=== PATIENT | female | born 1975 | race Caucasian/White ===

== ENCOUNTER → 2017-09-01 | Outpatient (CLI) | payer BC ==
--- NOTE | 2017-09-02 07:59 | MG ---
HISTORY: SCREENING Comparison: 06/17/2012 FINDINGS: Bilateral CC and MLO projections of the right and left breast were obtained. Scattered fibroglandula r tissue is seen to be present. There is an area of breast asymmetry involving the upper-outer quadr ant of the right breast posteriorly. The asymmetry displays convex margins on the CC view. On the MLO view, the finding is less certain. Patient should return for follow-up coned spot compression mammog sohan of the right breast. If the area in question persists, targeted ultrasound will be needed. No s kin thickening or nipple retraction is appreciated. No pathological lymphadenopathy can be identifi ed. IMPRESSION: Incomplete evaluation of the right breast as described above. ACR CATEGORY 0 - assessment incomplete; additional imaging is needed. Patient should return for coned spot compression mammograms of the right breast and possibly right br east targeted ultrasound. Diagnostic CAD was utilized and reviewed. * 0 (ZERO) - ASSESSMENT INCOMPLETE; ADDITIONAL IMAGING IS NEEDED. * 1/1 (ONE) - NEGATIVE. * 2/II (TWO) - BENIGN FINDINGS. * 3/III (THREE) - PROBABLY BENIGN FINDING; SHORT INTERVAL FOLLOW-UP SUGGESTED. * 4/IV (FOUR) - SUSPICIOUS ABNORMALITY; BIOPSY SHOULD BE CONSIDERED. * 5/V - HIGHLY SUSPICIOUS OF MALIGNANCY; BIOPSY SHOULD BE PERFORMED. A NEGATIVE X-RAY REPORT SHOULD NOT DELAY BIOPSY IF A DOMINANT OR CLINICALLY SUSPICIOUS MASS IS PRESENT; 4 TO 8 PERCENT OF CANCERS ARE NOT IDENTIFIED BY X-RAY. A NEGA TIVE REPORT MAY REINFORCE THE CLINICAL IMPRESSION. ADENOSIS AND DENSE BREASTS MAY OBSCURE AN UNDERLY ING NEOPLASM. Reported By:
== END ==
LOC: RAD 14:50
PROVIDERS: ATTEND Specialist
DX: Z12.31 Encounter for screening mammogram for malignant neoplasm of breast (principal)
CPT/HCPCS: 77067

== ENCOUNTER → 2017-09-16 | Outpatient (CLI) | payer BC ==
--- NOTE | 2017-09-16 14:51 | US ---
HISTORY: Abnormal screening mammography with right breast focal asymmetry Right breast digital diagnostic mammography with CAD and right breast ultrasound. Comparison: June 17, 2012 and September 01, 2017 FINDINGS: Mammogram: ML and spot compression CC and MLO projections of the right breast were obtained. Scatter ed fibroglandular tissue is seen to be present with the previously described focal asymmetry becoming less prominent with intervening foci of lucency and assuming a similar appearance as compared to the more remote prior but not entirely resolving and which will be correlated with ultrasound. There is no corresponding abnormality on the mL projection. No suspicious architectural distortion, mass or c lustered microcalcifications can be observed to suggest malignancy. No skin thickening or nipple ret raction is appreciated. No pathological lymphadenopathy can be identified. Ultrasound: Multiple grayscale and color Doppler images of the upper outer quadrant right breast were obtained. At 10 o'clock approximately 5 cm from the nipple, there are dense fibrocystic changes with out a focal discrete measurable suspicious cystic or solid nodule. IMPRESSION: NO RADIOGRAPHIC EVIDENCE OF MALIGNANCY. ACR CATEGORY II - benign findings. FOLLOW-UP EXAM 1 YEAR. Diagnostic CAD was utilized and reviewed. * 0 (ZERO) - ASSESSMENT INCOMPLETE; ADDITIONAL IMAGING IS NEEDED. * 1/ (ONE) - NEGATIVE. * 2/II (TWO) - BENIGN FINDINGS. * 3/III (THREE) - PROBABLY BENIGN FINDING; SHORT INTERVAL FOLLOW-UP SUGGESTED. * 4/IV (FOUR) - SUSPICIOUS ABNORMALITY; BIOPSY SHOULD BE CONSIDERED. * 5/V - HIGHLY SUSPICIOUS OF MALIGNANCY; BIOPSY SHOULD BE PERFORMED. A NEGATIVE X-RAY REPORT SHOULD NOT DELAY BIOPSY IF A DOMINANT OR CLINICALLY SUSPICIOUS MASS IS PRESENT; 4 TO 8 PERCENT OF CANCERS ARE NOT IDENTIFIED BY X-RAY. A NEGA TIVE REPORT MAY REINFORCE THE CLINICAL IMPRESSION. ADENOSIS AND DENSE BREASTS MAY OBSCURE AN UNDERLY ING NEOPLASM. Reported By:
== END ==
LOC: RAD 13:09
PROVIDERS: ATTEND Specialist
DX: R92.8 Other abnormal and inconclusive findings on diagnostic imaging of breast (principal)
CPT/HCPCS: 76642; 77065